=== PATIENT | female | born 1990 ===

== ENCOUNTER 2021-10-03 09:21 | Outpatient (CLI) | payer OTHER | END 2021-10-03 09:22 | disposition home or self-care (01) | LOC: CSHULT 09:21 | PROVIDERS: ATTEND Nurse Practitioner Women's Health | DX: Z34.82 Encounter for supervision of other normal pregnancy, second trimester (principal); Z3A.24 24 weeks gestation of pregnancy | CPT/HCPCS: 76805 ==